=== PATIENT | female | born 1990 | race African-American/Black ===

== ENCOUNTER 2017-01-14 13:37 | Observation (INO) | payer OTHER, MEDICAID ==
[~2017-01-14] VITALS: Ht 167.6 cm; Wt 81.0 kg
[2017-01-14] MEDS ORDERED: FLUT1DIS3 IH (13:46)
[2017-01-14 14:37] LABS: BASOPHILS % 0.4 % (0.0-2.0); EOSINOPHILS % 0.6 % (0.0-5.0); HEMOGLOBIN. 9.7 g/dL (12.0-16.0); LYMPHOCYTES % 18.7 % (20.0-50.0); MEAN CORPUSCULAR HEMOGLOBIN 27.3 pg (28.0-32.0); MEAN CORPUSCULAR HGB CONC 32.4 g/dL (31.0-37.0); MEAN CORPUSCULAR VOLUME 84.3 fL (81.0-99.0); MONOCYTES % 11.2 % (2.0-8.0); NEUTROPHILS % 69.1 % (40.0-76.0); PLATELET 357 x1000/uL (130-400); RED BLOOD CELL COUNT 3.56 mill/uL (4.2-5.4); RED CELL DISTRIBUTION WIDTH 13.5 % (11.6-14.6)
[2017-01-14 14:44] VITALS: BP 139/82
[2017-01-14 14:44] LABS: CHLORIDE 105 mEq/L (98-107); INDEX HEMOLYSI 1 (1-3); INDEX ICTERIC 1 (1-4); INDEX LIPEMIC 1 (1-3)
[2017-01-14 14:49] LABS: ANION GAP 17; CARBON DIOXIDE 20 mEq/L (21-32); UREA NITROGEN BLOOD 7 mg/dL (7-21); eGFR > 60 mL/min (>60)
[2017-01-14] MEDS ORDERED: SODIUM CHLORIDE 0.9% 1,000 ML IV ONE (15:03)
[2017-01-14] MEDS ORDERED: PNV1TABL76 MT (18:26)
== END 2017-01-14 18:30 | disposition home or self-care (01) ==
LOC: ER 13:47 → L&D 17:39
PROVIDERS: ADMIT Obstetrics & Gynecology; ATTEND Obstetrics & Gynecology
DX: O26.893 Other specified pregnancy related conditions, third trimester (principal); O99.513 Diseases of the respiratory system complicating pregnancy, third trimester; R55 Syncope and collapse; J45.909 Unspecified asthma, uncomplicated; Z3A.33 33 weeks gestation of pregnancy
CPT/HCPCS: 36415; 76815; 80048; 85025; 93005; 96360; 99285; G0378; J7030; 96361